=== PATIENT | female | born 1955 | race Caucasian/White ===

== ENCOUNTER 2017-09-12 06:59 | Day surgery (SDC) | payer OTHER ==
[~2017-09-12] VITALS: Ht 162.6 cm; Wt 109.8 kg
[~2017-09-12 06:59] MED LIST: ALPR0.5T7 PO; ASPI-231 PO; METF-370 PO; METO-158 PO; NORE5TAB3 PO; PRAV20TA3 PO; TELM5TAB PO
[2017-09-12] MEDS ORDERED: LIDOCAINE HCL 2 %PF INJ 10ML AMP IJ ONE (07:08)
[2017-09-12] MEDS ORDERED: IODIXANOL 320MG/ML 100ML BTL IV ONE (07:08)
[2017-09-12] MEDS ORDERED: HEPARIN IN NS 1000Units/500mL 1,500 ML ONE (07:08)
[2017-09-12] MEDS ORDERED: NITR-48 PO (07:15)
[2017-09-12] MEDS ORDERED: ANGIOMAX 250 MG VIAL IV ONE (07:58)
[2017-09-12] MEDS ORDERED: fentaNYL CITRATE 100 MCG/2 ML VL ONE (07:58)
[2017-09-12] MEDS ORDERED: MIDAZOLAM HCL 1MG/1ML-2 ML VIAL ONE (07:59)
[2017-09-12] MEDS ORDERED: SODIUM CHL 0.9% 0 ML ONE (07:59)
[2017-09-12] MEDS ORDERED: VERAPAMIL 2.5MG/ML INJ 2ML VIAL IV ONE (08:29)
[2017-09-12] MEDS ORDERED: HEPARIN SODIUM (PORCINE) 5000 UNITS/ML 1ML VIAL ONE (08:29)
[2017-09-12] MEDS ORDERED: SODIUM CHLORIDE 0.9% 1,000 ML IV ONE (09:15)
== END 2017-09-12 10:50 | disposition home or self-care (01) ==
LOC: CATH 06:59
PROVIDERS: ATTEND Internal Medicine Cardiovascular Disease
DX: I25.10 Atherosclerotic heart disease of native coronary artery without angina pectoris (principal); I10 Essential (primary) hypertension; E78.5 Hyperlipidemia, unspecified; Z87.891 Personal history of nicotine dependence; Z79.84 Long term (current) use of oral hypoglycemic drugs; E11.9 Type 2 diabetes mellitus without complications; Z79.82 Long term (current) use of aspirin; Z79.899 Other long term (current) drug therapy; Z88.0 Allergy status to penicillin; Z88.1 Allergy status to other antibiotic agents; Z88.2 Allergy status to sulfonamides; E66.01 Morbid (severe) obesity due to excess calories; Z68.41 Body mass index [BMI] 40.0-44.9, adult
CPT/HCPCS: 93458; C1769; C1887; C1894; J1644; J2250; J3010; J7030; Q9967; 99152; 99153